=== PATIENT | female | born 1980 | race Caucasian/White ===

== ENCOUNTER 2019-10-19 19:11 | Inpatient (IN) | payer MEDICAID ==
[2019-10-19] MEDS ORDERED: CEFTRIAXONE 1 GM/D5W RTU 1 GM/50 ML RTUPB IV ONE ×2 (20:38→23:32)
[2019-10-19] MEDS ORDERED: RINGERS LACTATED IV ONE (20:38)
[2019-10-19] MEDS ORDERED: ONDANSETRON HCL INJ/PF 4 MG/2 ML SDV IV ONE (20:47)
[2019-10-19] MEDS ORDERED: MORPHINE SULFATE 10 MG/ML INJ IV ONE (20:47)
--- NOTE | 2019-10-19 20:48 | ER Document Report ---
ED Medical Screen (RME) - General Chief Complaint: Flank Pain Stated Complaint: FLANK PAIN Time Seen by Provider: 10/19/19 20:30 Mode of Arrival: Ambulatory Information source: Patient Notes: Patient is a 39-year-old female comes emergency room stating that she is here in [facility] on vacation from [place]. She states that 5 weeks ago she had a ureteral stent placement secondary to having difficulty urinating. About 2 weeks ago they found a 10 mm stone and left the stents in. She has had off-and-on discomfort and pain with them. But over the past 3 days patient has had increasing amounts of discomfort. She is unable to keep any food down. She is spiked a fever. Her pain is radiating from around the left side to her back. Her primary reason for being tonight is that she has a temp of 100.8 and she is tachycardic and she feels "terrible". Patient only has a history of umf-opvpvdx-peuovfakl diabetes. Last menstrual period was greater than 5 weeks ago states that since they put the stent and she has not had aPeriod Physical exam: Patient is a well-nourished well-developed overweight 39-year-old female though in no apparent distress appears ill. Cardiac: Patient is tachycardic at about 105 bpm. Lungs: Bilateral breath sounds are present no rhonchi rales or wheeze are heard. Abdomen: Patient displays moderate moderate tenderness on the left side in a s itting position of her lower abdominal area. Bowel sounds are present all 4 quads. She does have some left-sided flank pain to percussion. I have greeted and performed a rapid initial assessment of this patient. A comprehensive ED assessment and evaluation of the patient, analysis of test results and completion of the medical decision making process will be conducted by additional ED providers. Dictation of this chart was performed using voice recognition software; therefore, there may be some unintended grammatical errors. TRAVEL OUTSIDE OF THE [place] IN LAST 30 DAYS: No - Related Data Allergies/Adverse Reactions: aspirin [Aspirin] Allergy (Verified 10/07/14 17:03) strawberry [[place]] Allergy (Verified 03/07/15 15:13) Home Medications: Atrnolol. Omeprazole. glipizide. metformin. Atorvastatin Past Medical History - Social History Chew tobacco use (# tins/day): No Frequency of alcohol use: None Drug Abuse: None Endocrine Medical History: Reports: Hx Diabetes Mellitus Type 2 Renal/ Medical History: Reports: Hx Kidney Stones Past Surgical History: Reports: Hx Appendectomy, Hx Cholecystectomy, Hx Kidney (Renal Surgery) - Kidney stone, Hx Orthopedic Surgery - cervical spine fusion, Hx Tonsillectomy, Hx Tubal Ligation - Immunizations Immunizations up to date: Yes Hx Diphtheria, Pertussis, Tetanus Vaccination: No Physical Exam - Vital signs Vitals: Temp Pulse Resp BP Pulse Ox 100.8 F H 101 H 20 89/56 L 99 10/19/19 20:26 10/19/19 20:26 10/19/19 20:26 10/19/19 20:26 10/19/19 20:26 Course - Vital Signs Vital signs: Temp Pulse Resp BP Pulse Ox 100.8 F H 101 H 20 89/56 L 99 10/19/19 20:26 10/19/19 20:26 10/19/19 20:26 10/19/19 20:26 10/19/19 20:26
[2019-10-19 20:52] LABS: APPEARANCE,URINE TURBID; BILIRUBIN,URINE NEGATIVE (NEGATIVE); COLOR,URINE YELLOW; GLUCOSE, URINE NEGATIVE (NEGATIVE); KETONES,URINE NEGATIVE (NEGATIVE); LEUKOCYTE ESTERASE,URINE LARGE (NEGATIVE); NITRITE,URINE POSITIVE (NEGATIVE); PROTEIN,URINE 100 mg/dL (NEGATIVE); URINE SPECIFIC GRAVITY 1.011; UROBILINOGEN,URINE NEGATIVE mg/dL (<2.0)
[2019-10-19 21:18] LABS: ABSOLUTE BASOPHILS # (AUTO) 0.1 10^3/uL (0.0-0.2); ABSOLUTE LYMPHOCYTES (AUTO) 2.3 10^3/uL (0.5-4.7); ABSOLUTE MONOCYTES (AUTO) 1.1 10^3/uL (0.1-1.4); ABSOLUTE NEUT (AUTO) 9.4 10^3/uL (1.7-8.2); BASOPHILS % (AUTO) 0.7 % (0-2); EOSINOPHILS % (AUTO) 0.3 % (0-6); HEMATOCRIT 32.9 % (36.0-47.0); HEMOGLOBIN 11.1 g/dL (12.0-15.5); LYMPHOCYTES % (AUTO) 17.8 % (13-45); MEAN CORPUSCULAR HEMOGLOBIN 28.7 pg (27.0-33.4); MEAN CORPUSCULAR HGB CONC 33.7 g/dL (32.0-36.0); MEAN CORPUSCULAR VOLUME 85 fl (80-97); MONOCYTES % (AUTO) 8.5 % (3-13); PLATELET COUNT 393 10^3/uL (150-450); RED BLOOD COUNT 3.85 10^6/uL (3.72-5.28); RED CELL DISTRIBUTION WIDTH 15.5 % (11.5-14.0); SEGMENTED NEUTROPHILS % (AUTO) 72.7 % (42-78); TOTAL CELLS COUNTED % (AUTO) 100 %; WHITE BLOOD COUNT 12.9 10^3/uL (4.0-10.5)
[2019-10-19 21:19] LABS: VENOUS BLOOD BASE EXCESS 0.2 mmol/L; VENOUS BLOOD HCO3 25.1 mmol/L (20-32); VENOUS BLOOD PCO2 41.6 mmHg (35-63); VENOUS BLOOD PH 7.4 (7.30-7.42)
[2019-10-19 21:25] LABS: INTERNATIONAL RATION (INR) 1.02; PROTHROMBIN TIME 13.6 SEC (11.4-15.4)
[2019-10-19 21:31] LABS: ALBUMIN 3.6 g/dL (3.5-5.0); ALKALINE PHOSPHATASE 70 U/L (38-126); ANION GAP 8 (5-19); ASPARTATE AMINO TRANSFERASE 16 U/L (14-36); BILIRUBIN,DIRECT 0.1 mg/dL (0.0-0.4); BILIRUBIN,TOTAL 0.7 mg/dL (0.2-1.3); BLOOD UREA NITROGEN 5 mg/dL (7-20); CARBON DIOXIDE 27 mmol/L (22-30); CHLORIDE 100 mmol/L (98-107); GLUCOSE 113 mg/dL (75-110); POTASSIUM 4.1 mmol/L (3.6-5.0); TOTAL PROTEIN 6.8 g/dL (6.3-8.2)
--- NOTE | 2019-10-19 21:33 | RADIOLOGY REPORT (SQ) ---
XR CHEST 1 VIEW CLINICAL STATEMENT: Cough COMPARISON: 08/15/2015 FINDINGS: Cardiomediastinal silhouette is within normal limits. There is no focal lung consolidation or pleural effusion. No evidence of pulmonary edema or pneumothorax. IMPRESSION: No acute cardiopulmonary disease.
[2019-10-19] MEDS ORDERED: ACETAMINOPHEN 325 MG TABLET PO ONE (22:39)
--- NOTE | 2019-10-19 23:32 | ER Document Report ---
ED GI/ - General Chief Complaint: Flank Pain Stated Complaint: FLANK PAIN Time Seen by Provider: 10/19/19 20:30 Mode of Arrival: Ambulatory Notes: Patient is a 39-year-old female that comes emergency department for chief complaint of fever, vomiting, left flank and left abdominal pain. She is visiting here on vacation from [place], she states 5 weeks ago she had a left ureteral stent placed secondary to a 10 mm stone, she also lithotripsy after this. She states she felt sick almost a week ago but this resolved until she became sick today. Past medical history of type 2 diabetes, tachycardia on metoprolol, hyperlipidemia. TRAVEL OUTSIDE OF THE [place] IN LAST 30 DAYS: No - Related Data Allergies/Adverse Reactions: aspirin [Aspirin] Allergy (Verified 10/07/14 17:03) strawberry [[place]] Allergy (Verified 03/07/15 15:13) Home Medications: Atrnolol. Omeprazole. glipizide. metformin. Atorvastatin Past Medical History - General Information source: Patient - Social History Smoking Status: Current Every Day Smoker Chew tobacco use (# tins/day): No Frequency of alcohol use: None Drug Abuse: None Lives with: Family Family History: Reviewed & Not Pertinent Endocrine Medical History: Reports: Hx Diabetes Mellitus Type 2 Renal/ Medical History: Reports: Hx Kidney Stones Past Surgical History: Reports: Hx Appendectomy, Hx Cholecystectomy, Hx Kidney (Renal Surgery) - Kidney stone, Hx Orthopedic Surgery - cervical spine fusion, Hx Tonsillectomy, Hx Tubal Ligation - Immunizations Immunizations up to date: Yes Hx Diphtheria, Pertussis, Tetanus Vaccination: No Review of Systems - Review of Systems Constitutional: See HPI EENT: No symptoms reported Cardiovascular: No symptoms reported Respiratory: No symptoms reported Gastrointestinal: See HPI Genitourinary: See HPI Female Genitourinary: No symptoms reported Musculoskeletal: No symptoms reported Skin: No symptoms reported Hematologic/Lymphatic: No symptoms reported Neurological/Psychological: No symptoms reported Physical Exam - Vital signs Vitals: Temp Pulse Resp BP Pulse Ox 100.8 F H 101 H 20 89/56 L 99 10/19/19 20:26 10/19/19 20:26 10/19/19 20:26 10/19/19 20:26 10/19/19 20:26 - Notes Notes: GENERAL: Awake, ill-appearing with dark circles under her eyes HEAD: Normocephalic, atraumatic. EYES: Pupils equal, round, and reactive to light. Extraocular movements intact. ENT: Oral mucosa dry, tongue midline. Oropharynx unremarkable. Airway patent. NECK: Full range of motion. Supple. Trachea midline. No lymphadenopathy. LUNGS: Clear to auscultation bilaterally, no wheezes, rales, or rhonchi. No respiratory distress. Non-tender chest wall. HEART: Regular rate and rhythm. No murmur ABDOMEN: Generalized tenderness over the lower abdomen and left lower abdomen. No guarding or rigidity. EXTREMITIES: Moves all 4 extremities spontaneously. No edema, normal radial and dorsalis pedis pulses bilaterally. No cyanosis. BACK: Mild left-sided CVA tenderness. No cervical, thoracic, lumbar midline tenderness. No saddle anesthesia, normal distal neurovascular exam. Moves all extremities in full range of motion. NEUROLOGICAL: Alert and oriented x3. Normal speech. Cranial nerves II through XII grossly intact. Strength 5/5 in all extremities. PSYCH: Normal affect, normal mood. SKIN: Flushed Course - Re-evaluation Re-evalutation: Patient febrile, initially became hypotensive down into the 80s, however she has responded well to IV fluids. She was initially mildly tachycardic but this also resolved. Patient is ill-appearing on my exam but she is alert, oriented, and not in distress. CBC shows leukocytosis at 12.9 with elevation of neutrophils. Chemistry nonspecific. Urine shows obvious infection with positive nitrites. Cultures for urine and blood have been sent. Patient has been given Rocephin antibiotics along with IV fluid resuscitation. CT shows retained stent but no current stone, mild hydronephrosis, no comparison here. Otherwise unremarkable. I discussed with Dr. Hi. Because of her pyelonephritis, hypotension, fever, he does recommend that patient needs to be admitted for observation by medicine. I discussed with patient, she states full agreement. Discussed with Dr. Ramirse, patient admitted to medical floor observation. - Vital Signs Vital signs: Temp Pulse Resp BP Pulse Ox 99.2 F 109 H 20 111/66 94 10/20/19 06:44 10/20/19 05:14 10/20/19 05:14 10/20/19 05:14 10/20/19 05:14 - Laboratory Result Diagrams: 10/19/19 20:55 10/19/19 20:55 Laboratory results interpreted by me: 10/19/19 10/19/19 10/19/19 20:20 20:55 20:55 WBC 12.9 H Hgb 11.1 L Hct 32.9 L RDW 15.5 H Absolute Neuts (auto) 9.4 H Sodium 135.4 L BUN 5 L Glucose 113 H Urine Protein 100 H Urine Blood MODERATE H Urine Nitrite POSITIVE H Ur Leukocyte Esterase LARGE H Discharge - Discharge Clinical Impression: Pyelonephritis Fever Qualifiers: Fever type: unspecified Qualified Code(s): R50.9 - Fever, unspecified Hypotension Qualifiers: Hypotension type: unspecified hypotension type Qualified Code(s): I95.9 - Hypotension, unspecified Vomiting Qualifiers: Vomiting type: unspecified Vomiting Intractability: non-intractable Nausea pres ence: with nausea Qualified Code(s): R11.2 - Nausea with vomiting, unspecified Condition: Stable Disposition: ADMITTED OBSERVATION Admitting Provider: Ike (Hospitalist) Unit Admitted: Medical Floor
[2019-10-20] MEDS ORDERED: MAGNESIUM HYDROXIDE SUSP 30 ML UDCUP PO PRN (00:46)
[2019-10-20] MEDS ORDERED: ONDANSETRON HCL INJ/PF 4 MG/2 ML SDV IV PRN (00:46)
[2019-10-20] MEDS ORDERED: MAG HYDROX/AL HYDROX/SIMETH SUSP 30 ML UDCUP PO PRN (00:46)
[2019-10-20] MEDS ORDERED: GLUCAGON,HUMAN RECOMB 1 MG INJ IM PRN (00:51)
[2019-10-20] MEDS ORDERED: DEXTROSE 40% GEL 15 GM TUBE PO PRN ×2 (00:51)
[2019-10-20] MEDS ORDERED: DEXTROSE 50%-WATER 25 GM/50 ML DISP.SYRIN IV PRN ×2 (00:51)
[2019-10-20] MEDS ORDERED: LORAZEPAM INJ 2 MG/1 ML VIAL IV PRN (00:52)
[2019-10-20] MEDS ORDERED: ACETAMINOPHEN 650 MG SUPP.RECT PR PRN (00:52)
[2019-10-20] MEDS ORDERED: MORPHINE SULFATE 10 MG/ML INJ IV PRN ×3 (00:52→01:28)
[2019-10-20] MEDS ORDERED: GUAIFENESIN SYRP 200 MG/10 ML UDC PO PRN (00:52)
[2019-10-20] MEDS ORDERED: NICOTINE 21 MG/24 HR PATCH.TD24 TD PRN (00:52)
[2019-10-20] MEDS: RINGERS SOLUTION,LACTATED 1,000 ML IV PRN ×3 (02:58→17:12)
[2019-10-20] MEDS: MORPHINE SULFATE 10 MG/ML INJ IV PRN ×2 (02:59→18:18)
--- NOTE | 2019-10-20 04:05 | PDOC H&P ---
History of Present Illness Admission Date/PCP: 10/20/2019 00:42 No local PCP Patient complains of: Left flank pain History of Present Illness: HIEN BAILEY is a 39 year old female who presented to the emergency room with acute left flank pain. She admits the sudden onset of continuous severe colicky pain in her left flank without radiation, on the evening of 10/19/2019. Her flank pain was accompanied by nausea with vomiting and was associated with malaise and a subjective fever with chills. She denies other associated or accompanying signs and symptoms. She admits prior similar episodes the last one being 1 week ago. She further admits that she had a left ureteral stent placed 5 weeks ago in order to treat a 10 mm kidney stone with lithotripsy and that therapy was successful. She has not identified any aggravating or ameliorating factors for her left flank pain. In the emergency room she was found to have a fever of 100.8 F, mild hypotension, tachycardia and she was also noted to have pyuria with a positive urine nitrate. She was started on IV Rocephin in the ER and was subsequently admitted to the hospital on observation status for further evaluation and treatment. Past Medical History Cardiac Medical History: Reports: Hyperlipidema, Other - Supraventricular tachycardia Denies: Atrial Fibrillation, Coronary Artery Disease, DVT, Myocardial Infarction, Hypertension, Pulmonary Embolism Pulmonary Medical History: Denies: Asthma, Chronic Obstructive Pulmonary Disease (COPD) EENT Medical History: Denies: Cataracts, Ears - Hearing aids Neurological Medical History: Denies: Hemorrhagic CVA, Ischemic CVA, Seizures Endocrine Medical History: Reports: Diabetes Mellitus Type 2, Obesity Denies: Diabetes Mellitus Type 1, Hyperthyroidism, Hypothyroidism Renal/ Medical History: Reports: Nephrolithiasis Denies: Chronic Kidney Disease Malignancy Medical History: Reports: None GI Medical History: Reports: Gastroesophageal Reflux Disease Denies: Cirrhosis, Crohn's Disease, Hepatitis, Peptic Ulcer Disease, Ulcerative Colitis Musculoskeltal Medical History: Denies: Arthritis, Fibromyalgia Skin Medical History: Denies: Eczema, Psoriasis Psychiatric Medical History: Reports: Tobacco Dependency Denies: Alcohol Dependency, Substance Abuse Traumatic Medical History: Reports: None Hematology: Denies: Anemia, Bleeding Tendencies Infectious Medical History: Reports: None Past Surgical History Past Surgical History: Reports: Appendectomy, Cholecystectomy, Orthopedic Surgery - cervical spine fusion, Tonsillectomy, Tubal Ligation, Other - Left ureteral stent placement and lithotripsy, excision of neck tumor Social History Information Source: Patient Smoking Status: Current Every Day Smoker Electronic Cigarette use?: No Frequency of Alcohol Use: Rare Hx Recreational Drug Use: No Drugs: None Hx Prescription Drug Abuse: No - Advance Directive Resuscitation Status: Full Code Surrogate healthcare decision maker:: Ramanadaisy Mead Family History Family History: DM. denies: CAD, Hypertension, Malignancy Parental Family History Reviewed: Yes Children Family History Reviewed: No Sibling(s) Family History Reviewed.: Yes Medication/Allergy Home Medications: Ciprofloxacin HCl [Cipro 500 mg Tablet] 500 mg PO BID 14 Days tablet 12/10/14 Metformin HCl [Glucophage] 500 mg PO BID 12/10/14 Ondansetron [Zofran Odt 4 mg Tablet] 1 - 2 tab PO Q4H PRN #15 tab.rapdis 12/10/14 Promethazine HCl [Phenergan 25 mg Tablet] 1 - 2 tab PO Q6H PRN #15 tablet 12/10/14 Hydrocodone/Acetaminophen [[place] 5-325 mg Tablet] 1 tab PO Q4 PRN #12 tablet 1 04/09/14 Dicyclomine HCl [Bentyl 20 mg Tablet] 20 mg PO QID #30 tablet 07/02/15 Cyclobenzaprine HCl [Flexeril 10 mg Tablet] 10 mg PO TIDP PRN #15 tab 08/13/15 Diazepam [Valium 5 mg Tablet] 5 mg PO TID #15 tablet 08/16/15 Methocarbamol [Robaxin 750 mg Tablet] 750 mg PO QID #40 tablet 10/14/15 Naproxen [Naprosyn 250 Nmg Tablet] 500 mg PO BIDP PRN #30 tablet 10/14/15 Hydrocodone/Acetaminophen [[place] 5-325 mg Tablet] 1 tab PO QID #15 tablet 11/03/15 Penicillin V Potassium [Penicillin Vk 500 mg Tablet] 500 mg PO BID #20 tablet 11/03/15 Clindamycin HCl 300 mg PO ASDIR #56 capsule 11/28/15 Allergies/Adverse Reactions: aspirin [Aspirin] Allergy (Verified 10/07/14 17:03) strawberry [[place]] Allergy (Verified 03/07/15 15:13) Review of Systems Constitutional: PRESENT: as per HPI, chills, fever(s), other - Malaise Eyes: ABSENT: visual disturbances, other - Eye pain Ears: ABSENT: hearing changes, other - Ear pain Nose, Mouth, and Throat: ABSENT: headache(s), sore throat Cardiovascular: ABSENT: chest pain, palpitations Respiratory: ABSENT: cough, dyspnea Gastrointestinal: PRESENT: as per HPI, nausea, vomiting. ABSENT: constipation, diarrhea Genitourinary: PRESENT: as per HPI, other - Left flank pain Musculoskeletal: ABSENT: joint swelling, muscle weakness Integumentary: ABSENT: pruritus, rash Neurological: ABSENT: confusion, convulsions, focal weakness, memory loss, syncope Psychiatric: ABSENT: anxiety, depression Endocrine: ABSENT: cold intolerance, heat intolerance Hematologic/Lymphatic: ABSENT: easy bleeding, easy bruising Allergic/Immunologic: ABSENT: seasonal rhinorrhea Physical Exam Vital Signs: Temp Pulse Resp BP Pulse Ox 98.7 F 101 H 22 H 105/66 94 10/19/19 23:41 10/19/19 20:26 10/19/19 23:26 10/19/19 23:26 10/19/19 23:26 Intake & Output 10/18/19 10/19/19 10/20/19 23:59 23:59 23:59 Intake Total 50 50 Balance 50 50 Weight 97.7 kg General appearance: PRESENT: cooperative, mild distress - Secondary to flank pain, obese Head exam: PRESENT: atraumatic, normocephalic Eye exam: PRESENT: conjunctiva pink. ABSENT: conjunctival injection, scleral icterus Ear exam: PRESENT: normal external ear exam. ABSENT: bleeding, drainage Mouth exam: PRESENT: dry mucosa, neck supple Neck exam: ABSENT: thyromegaly, tracheal deviation Respiratory exam: PRESENT: clear to auscultation ofelia, symmetrical, unlabored Cardiovascular exam: PRESENT: RRR. ABSENT: clicks, gallop, rubs Pulses: PRESENT: normal radial pulses, normal dorsalis pedis pul Vascular exam: PRESENT: normal capillary refill. ABSENT: pallor GI/Abdominal exam: PRESENT: normal bowel sounds, soft Rectal exam: PRESENT: deferred Gentrourinary exam: PRESENT: other - Left flank tenderness on palpation Extremities exam: ABSENT: joint swelling, pedal edema Musculoskeletal exam: ABSENT: deformity, dislocation Neurological exam: PRESENT: alert, oriented to person, oriented to place, oriented to time, oriented to situation, CN II-XII grossly intact. ABSENT: motor sensory deficit Psychiatric exam: PRESENT: appropriate affect, normal mood Skin exam: PRESENT: dry, intact, warm. ABSENT: jaundice, rash, urticaria Results Laboratory Results: 10/19/19 20:55 10/19/19 20:55 10/19/19 10/19/19 10/19/19 20:20 20:55 20:55 WBC 12.9 H RBC 3.85 Hgb 11.1 L Hct 32.9 L MCV 85 MCH 28.7 MCHC 33.7 RDW 15.5 H Plt Count 393 Seg Neutrophils % 72.7 VBG pH VBG pCO2 VBG HCO3 VBG Base Excess Sodium 135.4 L Potassium 4.1 Chloride 100 Carbon Dioxide 27 Anion Gap 8 BUN 5 L Creatinine 0.82 Est GFR ( Amer) > 60 Glucose 113 H Lactic Acid Calcium 9.0 Total Bilirubin 0.7 AST 16 Alkaline Phosphatase 70 Total Protein 6.8 Albumin 3.6 Serum HCG, Qual Urine Color YELLOW Urine Appearance TURBID Urine pH 6.0 Ur Specific [place] 1.011 Urine Protein 100 H Urine Glucose (UA) NEGATIVE Urine Ketones NEGATIVE Urine Blood MODERATE H Urine Nitrite POSITIVE H Ur Leukocyte Esterase LARGE H Urine WBC (Auto) >182 Urine RBC (Auto) 94 10/19/19 10/19/19 10/19/19 20:55 20:55 20:55 WBC RBC Hgb Hct MCV MCH MCHC RDW Plt Count Seg Neutrophils % VBG pH 7.40 VBG pCO2 41.6 VBG HCO3 25.1 VBG Base Excess 0.2 Sodium Potassium Chloride Carbon Dioxide Anion Gap BUN Creatinine Est GFR ( Amer) Glucose Lactic Acid 1.1 Calcium Total Bilirubin AST Alkaline Phosphatase Total Protein Albumin Serum HCG, Qual NEGATIVE Urine Color Urine Appearance Urine pH Ur Specific [place] Urine Protein Urine Glucose (UA) Urine Ketones Urine Blood Urine Nitrite Ur Leukocyte Esterase Urine WBC (Auto) Urine RBC (Auto) 10/19/19 23:20 WBC RBC Hgb Hct MCV MCH MCHC RDW Plt Count Seg Neutrophils % VBG pH VBG pCO2 VBG HCO3 VBG Base Excess Sodium Potassium Chloride Carbon Dioxide Anion Gap BUN Creatinine Est GFR ( Amer) Glucose Lactic Acid 1.3 Calcium Total Bilirubin AST Alkaline Phosphatase Total Protein Albumin Serum HCG, Qual Urine Color Urine Appearance Urine pH Ur Specific [place] Urine Protein Urine Glucose (UA) Urine Ketones Urine Blood Urine Nitrite Ur Leukocyte Esterase Urine WBC (Auto) Urine RBC (Auto) 10/19/19 20:55 Troponin I < 0.012 Impressions: Chest X-Ray 10/19/19 20:39 IMPRESSION: No acute cardiopulmonary disease. Assessment and Plan - Diagnosis (1) Pyelonephritis Is this a current diagnosis for this admission?: Yes (2) Left flank pain Is this a current diagnosis for this admission?: Yes (3) Malaise Is this a current diagnosis for this admission?: Yes (4) Fever Qualifiers: Fever type: unspecified Qualified Code(s): R50.9 - Fever, unspecified Is this a current diagnosis for this admission?: Yes (5) Vomiting Qualifiers: Vomiting type: unspecified Vomiting Intractability: non-intractable Naus ea presence: with nausea Qualified Code(s): R11.2 - Nausea with vomiting, unspecified Is this a current diagnosis for this admission?: Yes (6) Gastroesophageal reflux disease Qualifiers: Esophagitis presence: esophagitis presence not specified Qualified Code(s): K21.9 - Gastro-esophageal reflux disease without esophagitis Is this a current diagnosis for this admission?: Yes (7) Diabetes mellitus type 2 in obese Is this a current diagnosis for this admission?: Yes (8) Hyperlipidemia Qualifiers: Hyperlipidemia type: unspecified Qualified Code(s): E78.5 - Hyperlipidemia, unspecified Is this a current diagnosis for this admission?: Yes (9) History of supraventricular tachycardia Is this a current diagnosis for this admission?: Yes (10) Obesity (BMI 30-39.9) Is this a current diagnosis for this admission?: Yes (11) Tobacco use disorder, continuous Is this a current diagnosis for this admission?: Yes - Plan Summary Summary: Patient will be admitted to the medical floor as observation status where she will receive routine supportive and symptomatic cares. She will be treated with IV fluids utilizing lactated Ringer's at 167 mL/h. She will receive meropenem 1 g IV every 8 hours pending urine and blood cultures. She will receive morphine sulfate 2 to 4 mg IV every 2 hours as needed for pain. She will rec eive Ativan 1 mg IV every 4 hours as needed for anxiety or restlessness. She will be continued on her usual home medications, as appropriate, once her medication list has been verified and reconciled. Before meals and at bedtime Accu-Cheks will be performed with sliding scale insulin for hyperglycemia and a hypoglycemic protocol in place. Patient will be treated with a low-fat diabetic diet. Smoking cessation is advised and discussed briefly at the bedside. A nicotine replacement patch available for the patient's use, if desired. - Time Time Spent with patient: 15-24 minutes Smoking Cessation Education: 3 to 10 minutes Medications reviewed and adjusted accordingly: Yes Anticipated Discharge Disposition: Home, Self Care Anticipated Discharge Timeframe: within 36 hours - Inpatient Certification Based on my medical assessment, after consideration of the patient's comorbidities, presenting symptoms, or acuity I expect that the services needed warrant INPATIENT care.: No I certify that my determination is in accordance with my understanding of Medicare's requirements for reasonable and necessary INPATIENT services [42 CFR 412.3e].: No
[2019-10-20] MEDS: ACETAMINOPHEN 325 MG TABLET PO PRN ×5 (04:29→21:09)
[2019-10-20] MEDS ORDERED: MEROPENEM 1 GM VIAL ONE (05:14)
[2019-10-20] MEDS: HEPARIN SOD (PORCINE) 5,000 UNIT/ML 1 ML VIAL SUBCUT SCH ×3 (05:48→22:34)
[2019-10-20] MEDS: MEROPENEM 1 GM in NORMAL SALINE 50 ML IV SCH ×3 (05:49→22:29)
[2019-10-20] MEDS ORDERED: MEROPENEM 1 GM VIAL IV SCH (06:00)
[2019-10-20] MEDS ORDERED: FAMOTIDINE INJ/PF 20 MG/2 ML SDV IV SCH (10:00)
[2019-10-20] MEDS ORDERED: CEFTRIAXONE 1 GM/D5W RTU 1 GM/50 ML RTUPB IV SCH (10:00)
[2019-10-20] MEDS: DOCUSATE SODIUM 100 MG CAPSULE PO SCH ×2 (10:40→18:19)
[2019-10-20] MEDS: INSULIN REG, HUMAN 100 UNIT/ML 3 ML VIAL (PYX) SUBCUT SCH ×4 (10:42→22:33)
--- NOTE | 2019-10-20 13:56 | EKG REPORT ---
SEVERITY:- ABNORMAL ECG - SINUS TACHYCARDIA LEFT ANTERIOR FASCICULAR BLOCK BORDERLINE T ABNORMALITIES, INFERIOR LEADS : Confirmed by: Shailesh Rincon 20-Oct-2019 13:55:47
--- NOTE | 2019-10-20 17:14 | PDOC PROGRESS REPORT ---
Subjective Progress Note for:: 10/20/19 Subjective:: Patient denies overt pain but does continue to complain of dysuria Reason For Visit: ACUTE LEFT PYELONEPHRITIS Physical Exam Vital Signs: Temp Pulse Resp BP Pulse Ox 99.5 F 94 17 108/70 94 10/20/19 16:00 10/20/19 16:00 10/20/19 16:00 10/20/19 16:00 10/20/19 16:00 Intake & Output 10/19/19 10/20/19 10/21/19 06:59 06:59 06:59 Intake Total 3230 1300 Output Total 550 800 Balance 2680 500 Weight 103.4 kg General appearance: PRESENT: no acute distress, cooperative, obese Head exam: PRESENT: atraumatic, normocephalic Eye exam: PRESENT: conjunctiva pink. ABSENT: scleral icterus Mouth exam: PRESENT: moist, tongue midline Neck exam: ABSENT: JVD Respiratory exam: PRESENT: clear to auscultation ofelia, symmetrical, unlabored. ABSENT: accessory muscle use Cardiovascular exam: PRESENT: RRR, +S1, +S2 Pulses: PRESENT: normal carotid pulses, normal radial pulses, +2 pedal pulses bilateral Vascular exam: PRESENT: normal capillary refill GI/Abdominal exam: PRESENT: normal bowel sounds, soft. ABSENT: distended, tenderness Rectal exam: PRESENT: deferred Extremities exam: ABSENT: calf tenderness, pedal edema Musculoskeletal exam: PRESENT: ambulatory Neurological exam: PRESENT: alert, awake, oriented to person, oriented to place, oriented to time, oriented to situation, CN II-XII grossly intact. ABSENT: motor sensory deficit Psychiatric exam: PRESENT: appropriate affect, normal mood. ABSENT: agitated, anxious Skin exam: PRESENT: dry, normal color, warm Results Laboratory Results: 10/19/19 20:55 10/19/19 20:55 10/19/19 10/19/19 10/19/19 20:20 20:55 20:55 WBC 12.9 H RBC 3.85 Hgb 11.1 L Hct 32.9 L MCV 85 MCH 28.7 MCHC 33.7 RDW 15.5 H Plt Count 393 Seg Neutrophils % 72.7 VBG pH VBG pCO2 VBG HCO3 VBG Base Excess Sodium 135.4 L Potassium 4.1 Chloride 100 Carbon Dioxide 27 Anion Gap 8 BUN 5 L Creatinine 0.82 Est GFR ( Amer) > 60 Glucose 113 H Lactic Acid Calcium 9.0 Total Bilirubin 0.7 AST 16 Alkaline Phosphatase 70 Total Protein 6.8 Albumin 3.6 Serum HCG, Qual Urine Color YELLOW Urine Appearance TURBID Urine pH 6.0 Ur Specific [place] 1.011 Urine Protein 100 H Urine Glucose (UA) NEGATIVE Urine Ketones NEGATIVE Urine Blood MODERATE H Urine Nitrite POSITIVE H Ur Leukocyte Esterase LARGE H Urine WBC (Auto) >182 Urine RBC (Auto) 94 10/19/19 10/19/19 10/19/19 20:55 20:55 20:55 WBC RBC Hgb Hct MCV MCH MCHC RDW Plt Count Seg Neutrophils % VBG pH 7.40 VBG pCO2 41.6 VBG HCO3 25.1 VBG Base Excess 0.2 Sodium Potassium Chloride Carbon Dioxide Anion Gap BUN Creatinine Est GFR ( Amer) Glucose Lactic Acid 1.1 Calcium Total Bilirubin AST Alkaline Phosphatase Total Protein Albumin Serum HCG, Qual NEGATIVE Urine Color Urine Appearance Urine pH Ur Specific [place] Urine Protein Urine Glucose (UA) Urine Ketones Urine Blood Urine Nitrite Ur Leukocyte Esterase Urine WBC (Auto) Urine RBC (Auto) 10/19/19 10/20/19 23:20 03:45 WBC RBC Hgb Hct MCV MCH MCHC RDW Plt Count Seg Neutrophils % VBG pH VBG pCO2 VBG HCO3 VBG Base Excess Sodium Potassium Chloride Carbon Dioxide Anion Gap BUN Creatinine Est GFR ( Amer) Glucose Lactic Acid 1.3 1.2 Calcium Total Bilirubin AST Alkaline Phosphatase Total Protein Albumin Serum HCG, Qual Urine Color Urine Appearance Urine pH Ur Specific [place] Urine Protein Urine Glucose (UA) Urine Ketones Urine Blood Urine Nitrite Ur Leukocyte Esterase Urine WBC (Auto) Urine RBC (Auto) 10/19/19 20:55 Troponin I < 0.012 Impressions: Chest X-Ray 10/19/19 20:39 IMPRESSION: No acute cardiopulmonary disease. Assessment and Plan - Diagnosis (1) Pyelonephritis Is this a current diagnosis for this admission?: Yes (2) Fever Qualifiers: Fever type: unspecified Qualified Code(s): R50.9 - Fever, unspecified Is this a current diagnosis for this admission?: Yes (4) Diabetes mellitus type 2 in obese Is this a current diagnosis for this admission?: Yes (5) Tobacco use disorder, continuous Is this a current diagnosis for this admission?: Yes (6) Dyslipidemia Is this a current diagnosis for this admission?: Yes (7) Gastroesophageal reflux disease Qualifiers: Esophagitis presence: esophagitis presence not specified Qualified Code(s): K21.9 - Gastro-esophageal reflux disease without esophagitis Is this a current diagnosis for this admission?: Yes (8) Obesity (BMI 30-39.9) Is this a current diagnosis for this admission?: Yes (9) History of supraventricular tachycardia Is this a current diagnosis for this admission?: Yes - Plan Summary Summary: 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 She continues to spike fevers and is hyperglycemic which is likely related to her infection. [employer] med ication reconciliation completed. Will resume metformin 1000 mg p.o. twice daily and glipizide 10 mg p.o. twice daily. Will stop famotidine and restart omeprazole 40 mg p.o. daily. Continue atenolol 25 mg p.o. twice daily and pravastatin 40 mg p.o. daily. Urine culture positive for >100,000 GNR, awaiting specification. Blood cultures pending. continue meropenem 1 g IV every 8 hours at this time. Given patient's recent surgical interventions and presence of ureteral stent she is at increased risk for ESBL. - Time Time Spent with patient: 15-24 minutes Medications reviewed and adjusted accordingly: Yes Anticipated Discharge Disposition: Home, Self Care Anticipated Discharge Timeframe: TBD
[2019-10-20] MEDS ORDERED: ATENOLOL 50 MG TABLET ONE (18:15)
[2019-10-20] MEDS ORDERED: GLIPIZIDE 10 MG TABLET ONE (18:15)
[2019-10-20] MEDS: METFORMIN HCL 500 MG TABLET PO SCH (18:19)
[2019-10-20] MEDS: GLIPIZIDE 10 MG TABLET PO SCH (18:19)
[2019-10-20] MEDS: ATENOLOL 50 MG TABLET PO SCH (18:19)
[2019-10-20] MEDS: ATORVASTATIN CALCIUM 10 MG TABLET PO SCH (21:09)
[2019-10-21] MEDS: ACETAMINOPHEN 325 MG TABLET PO PRN ×2 (01:39→16:56)
[2019-10-21] MEDS: RINGERS SOLUTION,LACTATED 1,000 ML IV PRN ×2 (01:41→07:51)
[2019-10-21] MEDS: MEROPENEM 1 GM in NORMAL SALINE 50 ML IV SCH ×3 (05:21→21:59)
[2019-10-21] MEDS: HEPARIN SOD (PORCINE) 5,000 UNIT/ML 1 ML VIAL SUBCUT SCH ×3 (05:23→22:00)
[2019-10-21] MEDS: PANTOPRAZOLE SODIUM 40 MG TABLET.DR PO SCH (05:25)
[2019-10-21] MEDS: MORPHINE SULFATE 10 MG/ML INJ IV PRN ×2 (05:45→14:06)
[2019-10-21 06:42] LABS: HEMATOCRIT 27.4 % (36.0-47.0); HEMOGLOBIN 9.2 g/dL (12.0-15.5); MEAN CORPUSCULAR HEMOGLOBIN 28.8 pg (27.0-33.4); MEAN CORPUSCULAR HGB CONC 33.6 g/dL (32.0-36.0); MEAN CORPUSCULAR VOLUME 86 fl (80-97); PLATELET COUNT 273 10^3/uL (150-450); RED CELL DISTRIBUTION WIDTH 15.7 % (11.5-14.0); WHITE BLOOD COUNT 9.7 10^3/uL (4.0-10.5)
[2019-10-21 07:08] LABS: BLOOD UREA NITROGEN 6 mg/dL (7-20); CALCIUM 8.6 mg/dL (8.4-10.2); GLUCOSE 80 mg/dL (75-110); POTASSIUM 3.8 mmol/L (3.6-5.0)
[2019-10-21 07:13] LABS: ANION GAP 5 (5-19); CARBON DIOXIDE 31 mmol/L (22-30); CHLORIDE 101 mmol/L (98-107)
[2019-10-21] MEDS: INSULIN REG, HUMAN 100 UNIT/ML 3 ML VIAL (PYX) SUBCUT SCH ×4 (08:05→22:50)
[2019-10-21] MEDS: GLIPIZIDE 10 MG TABLET PO SCH ×2 (11:01→18:34)
[2019-10-21] MEDS: ATENOLOL 50 MG TABLET PO SCH ×2 (11:01→22:32)
[2019-10-21] MEDS: METFORMIN HCL 500 MG TABLET PO SCH ×2 (11:01→18:34)
[2019-10-21] MEDS: DOCUSATE SODIUM 100 MG CAPSULE PO SCH ×2 (11:02→18:34)
[2019-10-21] MEDS: CETIRIZINE 10 MG TABLET PO SCH (11:02)
--- NOTE | 2019-10-21 12:23 | PDOC PROGRESS REPORT ---
Subjective Progress Note for:: 10/21/19 Subjective:: Patient offers no complaints. She denies abdominal/flank pain. She continues to have dysuria Reason For Visit: ACUTE LEFT PYELONEPHRITIS Physical Exam Vital Signs: Temp Pulse Resp BP Pulse Ox 98.3 F 92 16 128/73 H 95 10/21/19 10:00 10/21/19 08:14 10/21/19 08:14 10/21/19 08:14 10/21/19 08:14 Intake & Output 10/20/19 10/21/19 10/22/19 06:59 06:59 06:59 Intake Total 3230 4400 1050 Output Total 550 3700 300 Balance 2680 700 750 Weight 103.4 kg 106.5 kg General appearance: PRESENT: no acute distress, cooperative, obese Head exam: PRESENT: atraumatic, normocephalic Eye exam: PRESENT: conjunctiva pink. ABSENT: scleral icterus Mouth exam: PRESENT: moist, tongue midline Neck exam: ABSENT: JVD Respiratory exam: PRESENT: clear to auscultation ofelia, symmetrical, unlabored. ABSENT: accessory muscle use Cardiovascular exam: PRESENT: RRR, +S1, +S2 Pulses: PRESENT: normal radial pulses, +1 pedal pulses bilateral GI/Abdominal exam: PRESENT: normal bowel sounds, soft. ABSENT: distended, tenderness Rectal exam: PRESENT: deferred Extremities exam: ABSENT: calf tenderness, pedal edema Musculoskeletal exam: PRESENT: ambulatory Neurological exam: PRESENT: alert, awake, oriented to person, oriented to place, oriented to time, oriented to situation, CN II-XII grossly intact. ABSENT: motor sensory deficit Psychiatric exam: PRESENT: appropriate affect, normal mood. ABSENT: agitated, anxious Skin exam: PRESENT: dry, normal color, warm Results Laboratory Results: 10/21/19 06:30 10/21/19 06:30 10/21/19 10/21/19 06:30 06:30 WBC 9.7 RBC 3.20 L Hgb 9.2 L Hct 27.4 L MCV 86 MCH 28.8 MCHC 33.6 RDW 15.7 H Plt Count 273 Sodium 136.7 L Potassium 3.8 Chloride 101 Carbon Dioxide 31 H Anion Gap 5 BUN 6 L Creatinine 0.64 Est GFR ( Amer) > 60 Glucose 80 Calcium 8.6 Magnesium 1.5 L 08/21/20 20:20 Clean Catch Midstream Urine Culture - Final Escherichia Coli Esbl 10/19/19 20:55 Troponin I < 0.012 Impressions: Chest X-Ray 10/19/19 20:39 IMPRESSION: No acute cardiopulmonary disease. Assessment and Plan - Diagnosis (1) Pyelonephritis Is this a current diagnosis for this admission?: Yes Plan: Patient has ureteral stent and is s/p lithotripsy for renal calculi Urine culture 10/20/2019: ESBL Cultures 10/19/2019: NG at 24 hours Sensitivities reviewed Continue meropenem 1 g IV every 8 hours Request ID consultation (2) Fever Qualifiers: Fever type: unspecified Qualified Code(s): R50.9 - Fever, unspecified Is this a current diagnosis for this admission?: Yes Plan: Afebrile this a.m. (3) Leucocytosis Is this a current diagnosis for this admission?: Yes Plan: Leukocytosis resolved (4) Diabetes mellitus type 2 in obese Is this a current diagnosis for this admission?: Yes Plan: Continue glipizide 10 mg p.o. twice daily Continue metformin 1000 mg p.o. twice daily Continue FS BS with SSI correction scale (5) Tobacco use disorder, continuous Is this a current diagnosis for this admission?: Yes Plan: Smoking cessation counseling reinforced Continue nicotine patch (6) Dyslipidemia Is this a current diagnosis for this admission?: Yes Plan: Continue atorvastatin 10 mg p.o. nightly (7) Gastroesophageal reflux disease Qualifiers: Esophagitis presence: esophagitis presence not specified Qualified Code(s): K21.9 - Gastro-esophageal reflux disease without esophagitis Is this a current diagnosis for this admission?: Yes Plan: Continue pantoprazole 40 mg p.o. daily (8) Obesity (BMI 30-39.9) Is this a current diagnosis for this admission?: Yes Plan: Discussed effects of weight on overall wellness (9) History of supraventricular tachycardia Is this a current diagnosis for this admission?: Yes Plan: Continue atenolol 25 mg p.o. twice daily (10) Anemia Is this a current diagnosis for this admission?: Yes Plan: Patient had 3.2 g drop in hemoglobin since admission There is most certainly a delusional component to this drop Check iron studies Monitor (11) Hyponatremia Is this a current diagnosis for this admission?: Yes Plan: Hyponatremia is mild Patient is asymptomatic Change IVF to NS (12) Hypomagnesemia Is this a current diagnosis for this admission?: Yes Plan: Replete Monitor - Time Time Spent with patient: 15-24 minutes Medications reviewed and adjusted accordingly: Yes Anticipated Discharge Disposition: TBD Anticipated Discharge Timeframe: TBD
[2019-10-21 12:42] LABS: ABSOLUTE RETICS # 0.032 10^6/uL (0.028-0.122)
[2019-10-21] MEDS: MAGNESIUM SULFATE/D5W 1 GM/100 ML RTUPB IV SCH ×2 (12:55→14:07)
[2019-10-21] MEDS: NORMAL SALINE 1000 ML 1,000 ML IV PRN (14:07)
[2019-10-21 14:08] LABS: FOLATE 8.12 ng/mL (>2.76)
[2019-10-21 14:21] LABS: IRON(TIBC) < 10.1 ug/dL (37-170)
[2019-10-21] MEDS: ATORVASTATIN CALCIUM 10 MG TABLET PO SCH (22:00)
[2019-10-21] MEDS ORDERED: FERROUS SULFATE 325 MG TABLET PO ONE (22:00)
[2019-10-21] MEDS: CYANOCOBALAMIN (VITAMIN B-12) 1,000 MCG TABLET PO SCH (22:50)
[2019-10-21] MEDS: FERROUS SULFATE 325 MG TABLET PO SCH (22:50)
[2019-10-22] MEDS: NORMAL SALINE 1000 ML 1,000 ML IV PRN (02:20)
[2019-10-22 07:23] LABS: ABSOLUTE EOSINOPHILS # (AUTO) 0.1 10^3/uL (0.0-0.6); ABSOLUTE LYMPHOCYTES (AUTO) 1.5 10^3/uL (0.5-4.7); ABSOLUTE MONOCYTES (AUTO) 0.6 10^3/uL (0.1-1.4); ABSOLUTE NEUT (AUTO) 5.5 10^3/uL (1.7-8.2); BASOPHILS % (AUTO) 0.6 % (0-2); EOSINOPHILS % (AUTO) 1.5 % (0-6); HEMATOCRIT 26.7 % (36.0-47.0); LYMPHOCYTES % (AUTO) 19.4 % (13-45); MEAN CORPUSCULAR HEMOGLOBIN 28.8 pg (27.0-33.4); MEAN CORPUSCULAR HGB CONC 33.5 g/dL (32.0-36.0); MEAN CORPUSCULAR VOLUME 86 fl (80-97); MONOCYTES % (AUTO) 7.3 % (3-13); PLATELET COUNT 303 10^3/uL (150-450); RED BLOOD COUNT 3.11 10^6/uL (3.72-5.28); RED CELL DISTRIBUTION WIDTH 15.4 % (11.5-14.0); SEGMENTED NEUTROPHILS % (AUTO) 71.2 % (42-78); TOTAL CELLS COUNTED % (AUTO) 100 %; WHITE BLOOD COUNT 7.8 10^3/uL (4.0-10.5)
[2019-10-22] MEDS: HEPARIN SOD (PORCINE) 5,000 UNIT/ML 1 ML VIAL SUBCUT SCH ×3 (07:55→22:43)
[2019-10-22] MEDS: MEROPENEM 1 GM in NORMAL SALINE 50 ML IV SCH ×3 (07:55→22:44)
[2019-10-22] MEDS: PANTOPRAZOLE SODIUM 40 MG TABLET.DR PO SCH (07:55)
[2019-10-22 07:59] LABS: ANION GAP 8 (5-19); BLOOD UREA NITROGEN 7 mg/dL (7-20); CARBON DIOXIDE 26 mmol/L (22-30); CHLORIDE 104 mmol/L (98-107); GLUCOSE 134 mg/dL (75-110); POTASSIUM 3.7 mmol/L (3.6-5.0)
[2019-10-22] MEDS: INSULIN REG, HUMAN 100 UNIT/ML 3 ML VIAL (PYX) SUBCUT SCH ×4 (08:35→21:53)
[2019-10-22] MEDS: CETIRIZINE 10 MG TABLET PO SCH (10:25)
[2019-10-22] MEDS: CYANOCOBALAMIN (VITAMIN B-12) 1,000 MCG TABLET PO SCH (10:25)
[2019-10-22] MEDS: ATENOLOL 50 MG TABLET PO SCH ×2 (10:25→22:44)
[2019-10-22] MEDS: GLIPIZIDE 10 MG TABLET PO SCH ×2 (10:26→17:15)
[2019-10-22] MEDS: METFORMIN HCL 500 MG TABLET PO SCH ×2 (10:26→17:14)
[2019-10-22] MEDS: DOCUSATE SODIUM 100 MG CAPSULE PO SCH ×2 (10:26→17:15)
[2019-10-22] MEDS: FERROUS SULFATE 325 MG TABLET PO SCH ×2 (10:26→17:15)
--- NOTE | 2019-10-22 11:43 | PDOC PROGRESS REPORT ---
Subjective Progress Note for:: 10/22/19 Subjective:: Patient is tearful because she states she needs to get home. Denies pain. Reason For Visit: ACUTE PYELONEPHRITIS Physical Exam Vital Signs: Temp Pulse Resp BP Pulse Ox 98.0 F 81 18 114/69 95 10/22/19 08:41 10/22/19 07:59 10/22/19 07:59 10/22/19 07:59 10/22/19 07:59 Intake & Output 10/21/19 10/22/19 10/23/19 06:59 06:59 06:59 Intake Total 4400 2250 Output Total 3700 2950 550 Balance 700 -700 -550 Weight 106.5 kg 106 kg General appearance: PRESENT: no acute distress, cooperative, obese Head exam: PRESENT: atraumatic, normocephalic Eye exam: PRESENT: conjunctiva pink. ABSENT: scleral icterus Mouth exam: PRESENT: moist, tongue midline Neck exam: ABSENT: JVD, thyromegaly Respiratory exam: PRESENT: clear to auscultation ofelia, symmetrical, unlabored. ABSENT: accessory muscle use Cardiovascular exam: PRESENT: RRR, +S1, +S2 Pulses: PRESENT: normal carotid pulses, normal radial pulses, +2 pedal pulses bilateral GI/Abdominal exam: PRESENT: normal bowel sounds, soft. ABSENT: distended, firm, guarding, rebound, rigid, tenderness Rectal exam: PRESENT: deferred Extremities exam: ABSENT: calf tenderness, pedal edema Musculoskeletal exam: PRESENT: ambulatory Neurological exam: PRESENT: alert, awake, oriented to person, oriented to place, oriented to time, oriented to situation, CN II-XII grossly intact. ABSENT: motor sensory deficit Psychiatric exam: PRESENT: depressed Skin exam: PRESENT: dry, normal color, warm Results Laboratory Results: 10/22/19 06:56 10/22/19 06:56 10/21/19 10/21/19 10/22/19 06:30 06:30 06:56 WBC 7.8 RBC 3.11 L Hgb 9.0 L Hct 26.7 L MCV 86 MCH 28.8 MCHC 33.5 RDW 15.4 H Plt Count 303 Seg Neutrophils % 71.2 Retic Count (auto) 1.00 Sodium Potassium Chloride Carbon Dioxide Anion Gap BUN Creatinine Est GFR ( Amer) Glucose Calcium Magnesium Iron < 10.1 L TIBC 288 Ferritin 60.90 Vitamin B12 231.0 L Folate 8.12 10/22/19 06:56 WBC RBC Hgb Hct MCV MCH MCHC RDW Plt Count Seg Neutrophils % Retic Count (auto) Sodium 137.5 Potassium 3.7 Chloride 104 Carbon Dioxide 26 Anion Gap 8 BUN 7 Creatinine 0.62 Est GFR ( Amer) > 60 Glucose 134 H Calcium 8.0 L Magnesium 1.8 Iron TIBC Ferritin Vitamin B12 Folate 10/19/19 20:20 Clean Catch Midstream Urine Culture - Final Escherichia Coli Esbl 10/19/19 20:55 Troponin I < 0.012 Impressions: Chest X-Ray 10/19/19 20:39 IMPRESSION: No acute cardiopulmonary disease. Assessment and Plan - Diagnosis (1) Pyelonephritis Is this a current diagnosis for this admission?: Yes Plan: Patient has ureteral stent and is s/p lithotripsy for renal calculi Urine culture 10/20/2019: ESBL Cultures 10/19/2019: NG at 48 hours Sensitivities reviewed Continue meropenem 1 g IV every 8 hours ID consulted, awaiting input (2) Fever Qualifiers: Fever type: unspecified Qualified Code(s): R50.9 - Fever, unspecified Is this a current diagnosis for this admission?: Yes Plan: Patient remains afebrile (3) Leucocytosis Is this a current diagnosis for this admission?: Yes Plan: Leukocytosis resolved (4) Diabetes mellitus type 2 in obese Is this a current diagnosis for this admission?: Yes Plan: Continue glipizide 10 mg p.o. twice daily Continue metformin 1000 mg p.o. twice daily Continue FS BS with SSI correction scale (5) Tobacco use disorder, continuous Is this a current diagnosis for this admission?: Yes Plan: Smoking cessation counseling reinforced Continue nicotine patch (6) Dyslipidemia Is this a current diagnosis for this admission?: Yes Plan: Continue atorvastatin 10 mg p.o. nightly (7) Gastroesophageal reflux disease Qualifiers: Esophagitis presence: esophagitis presence not specified Qualified Code(s): K21.9 - Gastro-esophageal reflux disease without esophagitis Is this a current diagnosis for this admission?: Yes Plan: Continue pantoprazole 40 mg p.o. daily (8) Obesity (BMI 30-39.9) Is this a current diagnosis for this admission?: Yes Plan: Discussed effects of weight on overall wellness (9) History of supraventricular tachycardia Is this a current diagnosis for this admission?: Yes Plan: Continue atenolol 25 mg p.o. twice daily (10) Anemia Is this a current diagnosis for this admission?: Yes Plan: Patient had 3.2 g drop in hemoglobin since admission There is most certainly a delusional component to this drop Iron studies reviewed Check stool for occult blood Patient started on FeSO4 325 mg p.o. twice daily with meals Patient started on vitamin B12 1000 mcg p.o. daily Discussed with patient that she will need to pursue outpatient evaluation and will likely need colonoscopy. The patient is in this area on vacation and lives in another state and is extremely eager to get home. She is unwilling to stay and pursue any additional diagnostic studies (11) Hyponatremia Is this a current diagnosis for this admission?: Yes (12) Hypomagnesemia Is this a current diagnosis for this admission?: Yes - Time Time Spent with patient: 15-24 minutes Smoking Cessation Education: 3 to 10 minutes Anticipated Discharge Disposition: Home, Self Care Anticipated Discharge Timeframe: TBD
--- NOTE | 2019-10-22 16:24 | Progress Note ---
Provider Note Provider Note: [facility] ID Telephone Advice Consultation Chart reviewed. Patient is a 39-year-old woman with history of DM2, tachyca rdia, nephrolithiasis who 5 weeks prior to admission had a left ureteral stent due to a large kidney stone now s/p lithotripsy. She is visiting from [place], and per notes, she started feeling malaise, fever, chills, nausea, vomiting left flank pain. She had fever, hypotension, leukocytosis. Blood cultures from 10/18 negative. Urine culture positive for E coli ESBL on 10/18. CT scan of abdomen and pelvis with mild hydronephrosis. She has been on meropenem since admission, ID consulted for recommendations. Allergies: aspirin [Aspirin] Allergy (Verified 10/07/14 17:03) strawberry [[place]] Allergy (Verified 03/07/15 15:13) Medications: Atenolol [Tenormin] 25 mg PO BID 10/20/19 Cetirizine HCl [Zyrtec 10 mg Tablet] 10 mg PO DAILY 10/20/19 Glipizide [Glucotrol] 10 mg PO BID 10/20/19 Metformin HCl [Glucophage] 1,000 mg PO BID 10/20/19 Omeprazole 40 mg PO QAM 10/20/19 Pravastatin Sodium 40 mg PO QPM 10/20/19 Vital Signs: Temp Pulse Resp BP Pulse Ox 98.0 F 77 18 113/72 99 10/22/19 13:56 10/22/19 13:56 10/22/19 13:56 10/22/19 13:56 10/22/19 13:56 Intake & Output 10/21/19 10/22/19 10/23/19 06:59 06:59 06:59 Intake Total 4400 2250 50 Output Total 3700 2950 550 Balance 700 -700 -500 Weight 106.5 kg 106 kg Weight/Height Weight 106 kg Height 5 ft 5 in Laboratories: 10/22/19 06:56 10/22/19 06:56 MCV 86 fl (80-97) 10/22/19 06:56 MCH 28.8 pg (27.0-33.4) 10/22/19 06:56 MCHC 33.5 g/dL (32.0-36.0) 10/22/19 06:56 RDW 15.4 % (11.5-14.0) H 10/22/19 06:56 Seg Neutrophils % 71.2 % (42-78) 10/22/19 06:56 Retic Count (auto) 1.00 % (0.66-2.85) 10/21/19 06:30 VBG pH 7.40 (7.30-7.42) 10/19/19 20:55 VBG pCO2 41.6 mmHg (35-63) 10/19/19 20:55 VBG HCO3 25.1 mmol/L (20-32) 10/19/19 20:55 VBG Base Excess 0.2 mmol/L 10/19/19 20:55 Chloride 104 mmol/L (98-107) 10/22/19 06:56 Carbon Dioxide 26 mmol/L (22-30) 10/22/19 06:56 Anion Gap 8 (5-19) 10/22/19 06:56 Est GFR ( Amer) > 60 (>60) 10/22/19 06:56 Glucose 134 mg/dL (75-110) H 10/22/19 06:56 Lactic Acid 1.2 mmol/L (0.7-2.1) 10/20/19 03:45 Calcium 8.0 mg/dL (8.4-10.2) L 10/22/19 06:56 Magnesium 1.8 mg/dL (1.6-2.3) 10/22/19 06:56 Iron < 10.1 ug/dL (37-170) L 10/21/19 06:30 TIBC 288 ug/dL (250-450) 10/21/19 06:30 Ferritin 60.90 ng/mL (6.2-137.0) 10/21/19 06:30 Total Bilirubin 0.7 mg/dL (0.2-1.3) 10/19/19 20:55 AST 16 U/L (14-36) 10/19/19 20:55 Alkaline Phosphatase 70 U/L (38-126) 10/19/19 20:55 Total Protein 6.8 g/dL (6.3-8.2) 10/19/19 20:55 Albumin 3.6 g/dL (3.5-5.0) 10/19/19 20:55 Vitamin B12 231.0 pg/mL (239-931) L 10/21/19 06:30 Folate 8.12 ng/mL (>2.76) 10/21/19 06:30 Serum HCG, Qual NEGATIVE (NEGATIVE) 10/19/19 20:55 Urine Color YELLOW 10/19/19 20:20 Urine Appearance TURBID 10/19/19 20:20 Urine pH 6.0 (5.0-9.0) 10/19/19 20:20 Ur Specific [place] 1.011 10/19/19 20:20 Urine Protein 100 mg/dL (NEGATIVE) H 10/19/19 20:20 Urine Glucose (UA) NEGATIVE mg/dL (NEGATIVE) 10/19/19 20:20 Urine Ketones NEGATIVE mg/dL (NEGATIVE) 10/19/19 20:20 Urine Blood MODERATE (NEGATIVE) H 10/19/19 20:20 Urine Nitrite POSITIVE (NEGATIVE) H 10/19/19 20:20 Ur Leukocyte Esterase LARGE (NEGATIVE) H 10/19/19 20:20 Urine WBC (Auto) >182 /HPF 10/19/19 20:20 Urine RBC (Auto) 94 /HPF 10/19/19 20:20 10/19/19 20:55 Troponin I < 0.012 Microbiology: Blood culture 10/18 NGTD Urine Culture 10/18 E coli ESBL Radiology: Chest X-Ray 10/19/19 20:39 IMPRESSION: No acute cardiopulmonary disease. Assessment and Recommendations: Patient evaluated for pyelonephritis in the setting of left ureteral stent and E coli ESBL. [place] from out [place] and would like to return home soon, however, the treatment of pyelonephritis with E coli ESBL is IV. This bacteria is resistant and unfortunately no good oral options to treat this (both TMP/SMX and fluoroquinolones resistant). Ertapenem or meropenem are the drugs of choice to treat this and 14 days is the duration of therapy. She has a ureteral stent that will have to be exchanged in order to eradicate the infection. Please call back if any questions. Ayla Mckinley MD [facility] ID [phone]
[2019-10-22] MEDS: MORPHINE SULFATE 10 MG/ML INJ IV PRN ×2 (17:50→23:36)
[2019-10-22] MEDS: ATORVASTATIN CALCIUM 10 MG TABLET PO SCH (22:44)
[2019-10-23] MEDS: NORMAL SALINE 1000 ML 1,000 ML IV PRN ×2 (04:17→13:21)
[2019-10-23] MEDS: MEROPENEM 1 GM in NORMAL SALINE 50 ML IV SCH ×2 (05:27→13:21)
[2019-10-23] MEDS: PANTOPRAZOLE SODIUM 40 MG TABLET.DR PO SCH (05:28)
[2019-10-23] MEDS: HEPARIN SOD (PORCINE) 5,000 UNIT/ML 1 ML VIAL SUBCUT SCH ×2 (05:33→13:47)
[2019-10-23] MEDS: INSULIN REG, HUMAN 100 UNIT/ML 3 ML VIAL (PYX) SUBCUT SCH ×3 (09:52→17:27)
[2019-10-23] MEDS: GLIPIZIDE 10 MG TABLET PO SCH (10:07)
[2019-10-23] MEDS: FERROUS SULFATE 325 MG TABLET PO SCH (10:07)
[2019-10-23] MEDS: CYANOCOBALAMIN (VITAMIN B-12) 1,000 MCG TABLET PO SCH (10:07)
[2019-10-23] MEDS: METFORMIN HCL 500 MG TABLET PO SCH (10:07)
[2019-10-23] MEDS: DOCUSATE SODIUM 100 MG CAPSULE PO SCH (10:07)
[2019-10-23] MEDS: ATENOLOL 50 MG TABLET PO SCH (10:08)
[2019-10-23] MEDS: CETIRIZINE 10 MG TABLET PO SCH (10:08)
[2019-10-23] MEDS: MORPHINE SULFATE 10 MG/ML INJ IV PRN (10:16)
--- NOTE | 2019-10-23 15:55 | RADIOLOGY REPORT (SQ) ---
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 FLUOROSCOPY TIME: 1.2 minutes 1 images saved to PACS. TECHNIQUE: Fluoroscopic and ultrasound guided PICC placement. LIMITATIONS: None. PROCEDURE: After written consent and assessment were obtained, the patient was brought into the fluo roscopy room and placed supine on the table. Ultrasound evaluation of potential access sites were per formed. After successfully identifying a patent left upper extremity basilic vein, the left arm was p repped and draped in a sterile fashion along with the ultrasound probe. The entry site was anesthetiz ed with 1% lidocaine. A 21 gauge 7 cm needle was advanced through the skin and into the basilic vein under live ultrasound guidance. An ultrasound image was saved to PACS confirming access site. A .01 8 guide wire was then inserted through the needle and into the venous system. The needle was then rem bernard and an 11 blade scalpel was used to make a 1cm skin incision. A 5 fr peel-away sheath was advan gwendolyn over the wire and into the venous system. A measurement was then made using the existing wire and live fluoroscopic guidance. The wire was then removed and trimmed. The PICC was advanced through the peel-away sheath and into the venous system. The peel-away sheath was removed and the catheter was a dhered to the patients arm with a stat lock. The catheter was then aspirated and flushed and a steril e bandage was placed over the access site. A fluoroscopic spot image was saved to PACS confirming th e catheter tip within the SVC. IMPRESSION: SUCCESSFUL PLACEMENT OF A 5 FR DUAL LUMEN 44 CM PICC IN THE LEFT BASILIC VEIN. COMMENT: Patient medication list reviewed: Yes- Quality ID# [id number]:Eligible professional attests to doc umenting in the medical record they obtained, updated, or reviewed the patient's current medications. . Quality ID 145: Final reports for procedures using fluoroscopy that document radiation exposure jose [id number], or exposure time and number of fluorographic images (if radiation exposure indices are not avail able) Quality ID #[id number]: The patient was prepped and draped using maximum sterile barrier technique including cap, mask, sterile gown, sterile gloves, a large sterile sheet, hand hygiene, and 2% Chlorhexidine fo r cutaneous antisepsis. When ultrasound is used, sterile ultrasound techniques are followed requiring sterile gel and sterile probes. TECHNICAL DOCUMENTATION: JOB ID: [id number] 2010 [employer] All Rights Reserved rev Reading location - IP/workstation name: [email or web address]
--- NOTE | 2019-10-23 17:07 | PDOC DISCHARGE SUMMARY ---
Impression - Admit/DC Date/PCP Admission Date/Primary Care Provider: 10/21/19 14:44 Discharge Date: 10/23/19 - Discharge Diagnosis (1) Acute pyelonephritis Is this a current diagnosis for this admission?: Yes (2) B12 deficiency Is this a current diagnosis for this admission?: Yes (3) Iron deficiency anemia Is this a current diagnosis for this admission?: Yes (4) Hyponatremia Is this a current diagnosis for this admission?: Yes (5) Leucocytosis Is this a current diagnosis for this admission?: Yes (6) Diabetes mellitus type 2 in obese Is this a current diagnosis for this admission?: Yes - Additional Information Resuscitation Status: Full Code Discharge Diet: Diabetic Discharge Activity: Activity As Tolerated Prescriptions: Ertapenem Sodium [Ertapenem] 1 gm IJ DAILY 10 Days vial Ferrous Sulfate [Feosol 325 mg Tablet] 325 mg PO DAILY #30 tablet Cyanocobalamin (Vitamin B-12) [Vitamin B-12 1000 mcg Tablet] 1,000 mcg PO DAILY #30 tablet Home Medications: Atenolol [Tenormin] 25 mg PO BID 10/20/19 Cetirizine HCl [Zyrtec 10 mg Tablet] 10 mg PO DAILY 10/20/19 Glipizide [Glucotrol] 10 mg PO BID 10/20/19 Metformin HCl [Glucophage] 1,000 mg PO BID 10/20/19 Omeprazole 40 mg PO QAM 10/20/19 Pravastatin Sodium 40 mg PO QPM 10/20/19 Cyanocobalamin (Vitamin B-12) [Vitamin B-12 1000 mcg Tablet] 1,000 mcg PO DAILY #30 tablet 10/23/19 Ertapenem Sodium [Ertapenem] 1 gm IJ DAILY 10 Days vial 10/23/19 Ferrous Sulfate [Feosol 325 mg Tablet] 325 mg PO DAILY #30 tablet 10/23/19 History of Present Illiness History of Present Illness: According to admitting provider: HIEN BAILEY is a 39 year old female who presented to the emergency room with acute left flank pain. She admits the sudden onset of continuous severe colicky pain in her left flank without radiation, on the evening of 10/19/2019. Her flank pain was accompanied by nausea with vomiting and was associated with malaise and a subjective fever with chills. She denies other associated or accompanying signs and symptoms. She admits prior similar episodes the last one being 1 week ago. She further admits that she had a left ureteral stent placed 5 weeks ago in order to treat a 10 mm kidney stone with lithotripsy and that therapy was successful. She has not identified any aggravating or ameliorating factors for her left flank pain. In the emergency room she was found to have a fever of 100.8 F, mild hypotension, tachycardia and she was also noted to have pyuria with a positive urine nitrate. She was started on IV Rocephin in the ER and was subsequently admitted to the hospital on observation status for further evaluation and treatment. Hospital Course Hospital Course: Patient was brought into the hospital for treatment of acute pyelonephritis. Patient has left ureteral stent and not so distant urologic procedure. Patient was started on treatment with IV antibiotics. Patient had leukocytosis as well as fever upon initial presentation. She also received IV fluids. Anemia noted at the level which dropped to around 9 likely secondary to dilution. Leukocytosis resolved with initiation of IV antibiotics. Blood cultures were negative. Urine culture grew ESBL E. coli. Infectious disease was consulted who recommended treatment for 14 days of therapy with meropenem or ertapenem. Patient's fevers seem to be resolved. Patient had PICC line placed today. We discussed that she will need IV antibiotics for the next few days up until 11/02/2019 to complete 14-day duration of therapy and she is agreeable to have this done In [place] and her parents apartment before returning home to [place]. project planner has gotten patient set up for home infusions of ertapenem 1 g daily up until 11/02/2019. They will be meeting with patient tomorrow morning once patient's gets discharged this evening. Patient also noted to have B12 and iron deficiency which are likely contributing to her anemia. She will be discharged on supplements for these. Outpatient urology follow up. Physical Exam Vital Signs: Temp Pulse Resp BP Pulse Ox 98.3 F 80 17 129/60 H 100 10/23/19 15:59 10/23/19 15:59 10/23/19 15:59 10/23/19 15:59 10/23/19 15:59 Intake & Output 10/22/19 10/23/19 10/24/19 06:59 06:59 06:59 Intake Total 2250 1200 1600 Output Total 2950 1100 1200 Balance -700 100 400 Weight 106 kg General appearance: PRESENT: no acute distress, cooperative Neck exam: ABSENT: JVD Respiratory exam: PRESENT: clear to auscultation ofelia, unlabored Cardiovascular exam: PRESENT: +S1, +S2 GI/Abdominal exam: PRESENT: soft. ABSENT: rebound, rigid, tenderness Neurological exam: PRESENT: alert, awake, oriented to person, oriented to place, oriented to time Results Laboratory Results: WBC 7.8 10^3/uL (4.0-10.5) 10/22/19 06:56 RBC 3.11 10^6/uL (3.72-5.28) L 10/22/19 06:56 Hgb 9.0 g/dL (12.0-15.5) L 10/22/19 06:56 Hct 26.7 % (36.0-47.0) L 10/22/19 06:56 MCV 86 fl (80-97) 10/22/19 06:56 MCH 28.8 pg (27.0-33.4) 10/22/19 06:56 MCHC 33.5 g/dL (32.0-36.0) 10/22/19 06:56 RDW 15.4 % (11.5-14.0) H 10/22/19 06:56 Plt Count 303 10^3/uL (150-450) 10/22/19 06:56 Lymph % (Auto) 19.4 % (13-45) 10/22/19 06:56 Vermilion % (Auto) 7.3 % (3-13) 10/22/19 06:56 Eos % (Auto) 1.5 % (0-6) 10/22/19 06:56 Baso % (Auto) 0.6 % (0-2) 10/22/19 06:56 Reticulocyte # 0.032 10^6/uL (0.028-0.122) 10/21/19 06:30 Absolute Neuts (auto) 5.5 10^3/uL (1.7-8.2) 10/22/19 06:56 Absolute Lymphs (auto) 1.5 10^3/uL (0.5-4.7) 10/22/19 06:56 Absolute Monos (auto) 0.6 10^3/uL (0.1-1.4) 10/22/19 06:56 Absolute Eos (auto) 0.1 10^3/uL (0.0-0.6) 10/22/19 06:56 Absolute Basos (auto) 0.0 10^3/uL (0.0-0.2) 10/22/19 06:56 Seg Neutrophils % 71.2 % (42-78) 10/22/19 06:56 Retic Count (auto) 1.00 % (0.66-2.85) 10/21/19 06:30 PT 13.6 SEC (11.4-15.4) 10/19/19 20:55 INR 1.02 10/19/19 20:55 VBG pH 7.40 (7.30-7.42) 10/19/19 20:55 VBG pCO2 41.6 mmHg (35-63) 10/19/19 20:55 VBG HCO3 25.1 mmol/L (20-32) 10/19/19 20:55 VBG Base Excess 0.2 mmol/L 10/19/19 20:55 Sodium 137.5 mmol/L (137-145) 10/22/19 06:56 Potassium 3.7 mmol/L (3.6-5.0) 10/22/19 06:56 Chloride 104 mmol/L (98-107) 10/22/19 06:56 Carbon Dioxide 26 mmol/L (22-30) 10/22/19 06:56 Anion Gap 8 (5-19) 10/22/19 06:56 BUN 7 mg/dL (7-20) 10/22/19 06:56 Creatinine 0.62 mg/dL (0.52-1.25) 10/22/19 06:56 Est GFR ( Amer) > 60 (>60) 10/22/19 06:56 Est GFR (MDRD) Non-Af > 60 (>60) 10/22/19 06:56 Glucose 134 mg/dL (75-110) H 10/22/19 06:56 POC Glucose 81 mg/dL (70-110) 10/23/19 15:55 Lactic Acid 1.2 mmol/L (0.7-2.1) 10/20/19 03:45 Calcium 8.0 mg/dL (8.4-10.2) L 10/22/19 06:56 Magnesium 1.8 mg/dL (1.6-2.3) 10/22/19 06:56 Iron < 10.1 ug/dL (37-170) L 10/21/19 06:30 TIBC 288 ug/dL (250-450) 10/21/19 06:30 Iron Saturation UNABLE TO CALCULATE % (15% - 50%) 10/21/19 06:30 Ferritin 60.90 ng/mL (6.2-137.0) 10/21/19 06:30 Total Bilirubin 0.7 mg/dL (0.2-1.3) 10/19/19 20:55 Direct Bilirubin 0.1 mg/dL (0.0-0.4) 10/19/19 20:55 Neonat Total Bilirubin Not Reportable 10/19/19 20:55 Neonat Direct Bilirubin Not Reportable 10/19/19 20:55 Neonat Indirect Bili Not Reportable 10/19/19 20:55 AST 16 U/L (14-36) 10/19/19 20:55 ALT 10 U/L (<35) 10/19/19 20:55 Alkaline Phosphatase 70 U/L (38-126) 10/19/19 20:55 Troponin I < 0.012 ng/mL 10/19/19 20:55 Total Protein 6.8 g/dL (6.3-8.2) 10/19/19 20:55 Albumin 3.6 g/dL (3.5-5.0) 10/19/19 20:55 Vitamin B12 231.0 pg/mL (239-931) L 10/21/19 06:30 Folate 8.12 ng/mL (>2.76) 10/21/19 06:30 Serum HCG, Qual NEGATIVE (NEGATIVE) 10/19/19 20:55 Urine Color YELLOW 10/19/19 20:20 Urine Appearance TURBID 10/19/19 20:20 Urine pH 6.0 (5.0-9.0) 10/19/19 20:20 Ur Specific [place] 1.011 10/19/19 20:20 Urine Protein 100 mg/dL (NEGATIVE) H 10/19/19 20:20 Urine Glucose (UA) NEGATIVE mg/dL (NEGATIVE) 10/19/19 20:20 Urine Ketones NEGATIVE mg/dL (NEGATIVE) 10/19/19 20:20 Urine Blood MODERATE (NEGATIVE) H 10/19/19 20:20 Urine Nitrite POSITIVE (NEGATIVE) H 10/19/19 20:20 Urine Bilirubin NEGATIVE (NEGATIVE) 10/19/19 20:20 Urine Urobilinogen NEGATIVE mg/dL (<2.0) 10/19/19 20:20 Ur Leukocyte Esterase LARGE (NEGATIVE) H 10/19/19 20:20 Urine WBC (Auto) >182 /HPF 10/19/19 20:20 Urine RBC (Auto) 94 /HPF 10/19/19 20:20 Urine WBC Clumps MANY /HPF 10/19/19 20:20 Squamous Epi Cells Auto 2 /HPF 10/19/19 20:20 Urine Mucus (Auto) FEW /LPF 10/19/19 20:20 Urine Ascorbic Acid NEGATIVE (NEGATIVE) 10/19/19 20:20 Stool Occult Blood NEGATIVE (NEGATIVE) 10/23/19 10:40 10/19/19 20:55 Troponin I < 0.012 Impressions: Chest X-Ray 10/19/19 20:39 IMPRESSION: No acute cardiopulmonary disease. PICC Line Insertion 10/23/19 00:00 IMPRESSION: SUCCESSFUL PLACEMENT OF A 5 FR DUAL LUMEN 44 CM PICC IN THE LEFT BASILIC VEIN. Plan Time Spent: Greater than 30 Minutes Stroke Is this a Stroke Patient?: No Acute Heart Failure - Is this a Heart Failure Patient?: No
[2019-10-23 17:12] VITALS: BP 103/78
== END 2019-10-23 17:50 | disposition home health service (06) | DRG 690 ==
LOC: ER 19:11 → EH 10-20 00:50 → 2N 10-20 02:15 → OBSVTOIN 10-21 14:44
PROVIDERS: ADMIT Emergency Medicine; ATTEND Internal Medicine
PROC: 02HV33Z Insertion of Infusion Device into Superior Vena Cava, Percutaneous Approach (ICD-10-PCS; principal; 2019-10-23)
PROC: B548ZZA Ultrasonography of Superior Vena Cava, Guidance (ICD-10-PCS; 2019-10-23)
DX: N10 Acute pyelonephritis (principal); Z16.12 Extended spectrum beta lactamase (ESBL) resistance; E87.1 Hypo-osmolality and hyponatremia; B96.20 Unspecified Escherichia coli [E. coli] as the cause of diseases classified elsewhere; F17.200 Nicotine dependence, unspecified, uncomplicated; E11.9 Type 2 diabetes mellitus without complications; I95.9 Hypotension, unspecified; Z96.0 Presence of urogenital implants; E53.8 Deficiency of other specified B group vitamins; K21.9 Gastro-esophageal reflux disease without esophagitis; E78.5 Hyperlipidemia, unspecified; E66.9 Obesity, unspecified; D50.9 Iron deficiency anemia, unspecified; E83.42 Hypomagnesemia; D72.829 Elevated white blood cell count, unspecified; Z90.49 Acquired absence of other specified parts of digestive tract; Z88.6 Allergy status to analgesic agent; Z87.442 Personal history of urinary calculi; Z98.890 Other specified postprocedural states; Z83.3 Family history of diabetes mellitus; Z79.84 Long term (current) use of oral hypoglycemic drugs; Z91.018 Allergy to other foods; Z68.30 Body mass index [BMI] 30.0-30.9, adult
CPT/HCPCS: 36415; 36573; 51701; 71045; 74176; 80048; 80053; 81001; 82272; 82607; 82728; 82746; 82803; 82962; 83540; 83550; 83605; 83735; 84484; 84703; 85025; 85027; 85045; 85610; 87040; 87086; 87088; 87186; 93005; 93010; 96361; 96365; 96367; 96375; 99285; G0378; J0696; J1642; J1644; J1815; J2185; J2270; J2405; J3475; J3490; J7030; J7120; S0028